=== PATIENT | male | born 2000 | race Caucasian/White ===

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

== ENCOUNTER 2018-12-02 11:36 | Emergency (ER) | payer BC ==
--- NOTE | 2018-12-02 11:51 | EDM.PDOC ---
ED HPI GENERAL MEDICAL PROBLEM - General Chief Complaint: Upper Extremity Injury/Pain Stated Complaint: LEFT WRIST Time Seen by Provider: 12/02/18 11:38 Source of Information: Reports: Patient History Limitations: Reports: No Limitations - History of Present Illness INITIAL COMMENTS - FREE TEXT/NARRATIVE: HISTORY AND PHYSICAL: History of present illness: Patient is a 18-year-old male presents to the ED today with concern of left wrist injury that occurred yesterday. Patient states he was riding his skateboard and hit a crack and fell off and landed on his left wrist which was outstretched. Patient states he did not hit his head or lose consciousness. Patient states he has been able to use the wrist but does have some pain with doing so. Patient denies any prior injury to the wrist or any other symptoms or concerns. Patient denies fever, chills, chest pain, shortness of breath, or cough. Denies headache, neck stiff ness, change in vision, syncope, or near syncope. Denies nausea, vomiting, abdominal pain, diarrhea, constipation, or dysuria. Has not noted any blood in urine or stool. Patient has been eating and drinking appropriately. Review of systems: As per history of present illness and below otherwise all systems reviewed and negative. Past medical history: As per history of present illness and as reviewed below otherwise noncontributory. Surgical history: As per history of present illness and as reviewed below otherwise noncontributory. Social history: See social history for further information Family history: As per history of present illness and as reviewed below otherwise noncontributory. Physical exam: General: Patient is alert, oriented, and in no acute distress. Patient sitting comfortably on exam table. HEENT: Atraumatic, normocephalic, pupils equal and reactive bilaterally, negative for conjunctival pallor or scleral icterus, mucous membranes moist, TMs normal bilaterally, throat clear, neck supple, nontender, trachea midline. No drooling or trismus noted. No meningeal signs. No hot potato voice noted. Lungs: Clear to auscultation, breath sounds equal bilaterally, chest nontender. Heart: S1S2, regular rate and rhythm without overt murmur Abdomen: Soft, nondistended, nontender. Negative for masses or hepatosplenomegaly. Negative for costovertebral tenderness. Pelvis: Stable nontender. Genitourinary: Deferred. Rectal: Deferred. Skin: Intact, warm, dry. No lesions or rashes noted. Extremities: Atraumatic, negative for cords or calf pain. Neurovascular unremarkable. No obvious deformity of the complete left upper extremity. Patient has full range of motion of the complete left upper extremity without pain or difficulty. Patient does have mild pain with palpation of the generalized wrist. Radial pulses grossly intact with capillary refill less than 2 seconds of the right upper extremity. Negative snuffbox tenderness. Neuro: Awake, alert, oriented. Cranial nerves II through XII unremarkable. Cerebellum unremarkable. Motor and sensory unremarkable throughout. Exam nonfocal. Notes: Discussed the importance for follow-up with a primary care provider. Voices understanding and is agreeable to plan of care. Denies any further questions or concerns at this time. Diagnostics: hand XR, wrist XR Therapeutics: Emmanuel wrap Prescription: None Impression: Left wrist injury Plan: 1. Rest, ice, elevate the affected extremity. You can apply ice 15 minutes on, 15 minutes off. 2. Tylenol and/or Ibuprofen as directed for pain management or discomfort. 3. Follow up with the primary care provider as discussed. Return to the ED as needed and as discussed. Definitive disposition and diagnosis as appropriate pending reevaluation and review of above. Left wrist Pain Score (Numeric/FACES): 4 - Related Data Allergies Allergy/AdvReac Type Severity Reaction Status Date / Time peroxide Allergy Cannot Uncoded 12/02/18 11:45 Remember Home Meds: Home Meds . [No Known Home Meds] 02/06/18 [History] Past Medical History - Past Health History Medical/Surgical History: Denies Medical/Surgical History HEENT History: Reports: None Cardiovascular History: Reports: None Respiratory History: Reports: None Gastrointestinal History: Reports: None Genitourinary History: Reports: None Musculoskeletal History: Reports: None Neurological History: Reports: None Psychiatric History: Reports: None Endocrine/Metabolic History: Reports: None Hematologic History: Reports: None Immunologic History: Reports: None Oncologic (Cancer) History: Reports: None Dermatologic History: Reports: None - Infectious Disease History Infectious Disease History: Reports: None - Past Surgical History Head Surgeries/Procedures: Reports: None HEENT Surgical History: Reports: Tonsillectomy Cardiovascular Surgical History: Reports: None Respiratory Surgical History: Reports: None GI Surgical History: Reports: None Male Surgical History: Reports: None Endocrine Surgical History: Reports: None Neurological Surgical History: Reports: None Musculoskeletal Surgical History: Reports: None Oncologic Surgical History: Reports: None Dermatological Surgical History: Reports: None Social & Family History - Family History Family Medical History: Unobtainable - Tobacco Use Smoking Status *Q: Current Every Day Smoker Years of Tobacco use: 8 Packs/Tins Daily: 1.5 - Caffeine Use Caffeine Use: Reports: Coffee, Energy Drinks, Soda, Tea - Recreational Drug Use Recreational Drug Use: Yes Recreational Drug Type: Reports: Marijuana/Hashish Review of Systems - Review of Systems Review Of Systems: ROS reveals no pertinent complaints other than HPI. ED EXAM, GENERAL - Physical Exam Exam: See Below (See dictation) Course - Vital Signs Last Recorded V/S: Last Vital Signs Temp 96.9 F 12/02/18 11:44 Pulse 88 12/02/18 11:44 Resp 18 12/02/18 11:44 BP 114/57 L 12/02/18 11:44 Pulse Ox 97 12/02/18 11:44 - Orders/Labs/Meds Orders: Active Orders 24 hr Category Date Time Status DME for Discharge [COMM] Stat Oth 12/02/18 12:45 Ordered Departure - Departure Time of Disposition: 12:46 Disposition: Home, Self-Care 01 Clinical Impression: Wrist injury Qualifiers: Encounter type: initial encounter Laterality: left Qualified Code(s): S69.92XA - Unspecified injury of left wrist, hand and finger(s), initial encounter - Discharge Information Referrals: PCP,None [Primary Care Provider] - Forms: ED Department Discharge Additional Instructions: The following information is given to patients seen in the emergency department who are being discharged to home. This information is to outline your options for follow-up care. We provide all patients seen in our emergency department with a follow-up referral. The need for follow-up, as well as the timing and circumstances, are variable depending upon the specifics of your emergency department visit. If you don't have a primary care physician on staff, we will provide you with a referral. We always advise you to contact your personal physician following an emergency department visit to inform them of the circumstance of the visit and for follow-up with them and/or the need for any referrals to a consulting specialist. The emergency department will also refer you to a specialist when appropriate. This referral assures that you have the opportunity for follow-up care with a specialist. All of these measure are taken in an effort to provide you with optimal care, which includes your follow-up. Under all circumstances we always encourage you to contact your private physician who remains a resource for coordinating your care. When calling for follow-up care, please make the office aware that this follow-up is from your recent emergency room visit. If for any reason you are refused follow-up, please contact the [facility] Emergency Department at and asked to speak to the emergency department charge nurse. [facility] Primary [facility] [address] [place] [address] [id number] [facility] [address] [place] [id number] 1. Rest, ice, elevate the affected extremity. You can apply ice 15 minutes on, 15 minutes off. 2. Tylenol and/or Ibuprofen as directed for pain management or discomfort. 3. Follow up with the primary care provider as discussed. Return to the ED as needed and as discussed. - My Orders Last 24 Hours: My Active Orders 12/02/18 12:45 DME for Discharge [COMM] Stat - Assessment/Plan Last 24 Hours: My Active Orders 12/02/18 12:45 DME for Discharge [COMM] Stat
--- NOTE | 2018-12-02 12:35 | CR ---
Left hand: Three views of the left hand were obtained. Comparison: No prior hand study. Joint spaces are maintained. No fracture, dislocation or other bony abnormality is seen. Impression: No abnormality is seen on left hand exam. Diagnostic code #1 MTDD
--- NOTE | 2018-12-02 12:36 | CR ---
Left wrist: Three views of the left wrist were obtained. Comparison: No previous wrist study. Joint spaces are maintained. No fracture, dislocation or other bony abnormality is seen. Impression: No abnormality is identified on left wrist exam. Diagnostic code #1 MTDD
== END 2018-12-02 13:05 | disposition home or self-care (01) ==
LOC: MW.ED 11:36
DX: S69.92XA Unspecified injury of left wrist, hand and finger(s), initial encounter (principal); F17.210 Nicotine dependence, cigarettes, uncomplicated; Z88.8 Allergy status to other drugs, medicaments and biological substances; V00.131A Fall from skateboard, initial encounter; Y93.51 Activity, roller skating (inline) and skateboarding
CPT/HCPCS: 73110-26-LT; 73110-LT; 73130-26-LT; 73130-LT; 99283-25

== ENCOUNTER 2019-09-09 11:39 | Emergency (ER) | payer SELFPAY ==
[2019-09-09] MEDS ORDERED: Ondansetron 4 MG Tab.DIS PO ONE (12:00)
--- NOTE | 2019-09-09 12:02 | EDM.PDOC ---
ED HPI GENERAL MEDICAL PROBLEM - General Chief Complaint: Abdominal Pain Stated Complaint: VOMITTING;SHAKING Time Seen by Provider: 09/09/19 11:46 - History of Present Illness INITIAL COMMENTS - FREE TEXT/NARRATIVE: History of present illness: 18-year-old male presenting with nausea and vomiting since last night. He reports that he consumed a large amount of alcohol yesterday and woke up vomiting last night, went back to sleep and woke up again this morning vomiting and he is concerned he is dehydrated. He has been attempting to drink Pedialyte but has not been able to keep it down. No abdominal pain. No other symptoms. Review of systems: As per history of present illness and below otherwise all systems reviewed and negative. Past medical history: As per history of present illness and as reviewed below otherwise noncontributory. Surgical history: As per history of present illness and as reviewed below otherwise noncontributory. Tonsillectomy Social history: No reported history of drug. Occasional alcohol abuse Family history: As per history of present illness and as reviewed below otherwise noncontributory. Physical exam: GEN: no acute distress, well appearing HEENT: Atraumatic, normocephalic, mucous membranes dry Neck: supple, nontender, trachea midline. Lungs: No respiratory distress. Heart: RRR Abdomen: Soft, nondistended, nontender. Back: nontender Extremities: Atraumatic. Neurovascularly intact. Neuro: Awake, alert, oriented. Neuro Exam nonfocal. Skin: warm, dry, no lesions Diagnostics: Deferred at this time, patient declines IV or labs Therapeutics: ODT Zofran MDM: Impression: [] Plan: [] Definitive disposition and diagnosis as appropriate pending reevaluation and review of above. Right Ankle Pain Score (Numeric/FACES): 3 - Related Data Allergies Allergy/AdvReac Type Severity Reaction Status Date / Time peroxide Allergy Cannot Uncoded 09/09/19 11:54 Remember Home Meds: Home Meds Ondansetron [Zofran ODT] 4 mg PO Q6H PRN #5 tab.dis 09/09/19 [Rx] Past Medical History - Past Health History Medical/Surgical History: Denies Medical/Surgical History HEENT History: Reports: None Cardiovascular History: Reports: None Respiratory History: Reports: None Gastrointestinal History: Reports: None Genitourinary History: Reports: None Musculoskeletal History: Reports: None Neurological History: Reports: None Psychiatric History: Reports: None Endocrine/Metabolic History: Reports: None Hematologic History: Reports: None Immunologic History: Reports: None Oncologic (Cancer) History: Reports: None Dermatologic History: Reports: None - Infectious Disease History Infectious Disease History: Reports: None - Past Surgical History Head Surgeries/Procedures: Reports: None HEENT Surgical History: Reports: Tonsillectomy Cardiovascular Surgical History: Reports: None Respiratory Surgical History: Reports: None GI Surgical History: Reports: None Male Surgical History: Reports: None Endocrine Surgical History: Reports: None Neurological Surgical History: Reports: None Musculoskeletal Surgical History: Reports: None Oncologic Surgical History: Reports: None Dermatological Surgical History: Reports: None Social & Family History - Family History Family Medical History: Unobtainable - Tobacco Use Smoking Status *Q: Former Smoker Used Tobacco, but Quit: Yes Month/Year Tobacco Last Used: 06/2019 - Caffeine Use Caffeine Use: Reports: Coffee, Energy Drinks, Soda, Tea - Recreational Drug Use Recreational Drug Use: Yes Recreational Drug Type: Reports: Marijuana/Hashish ED ROS GENERAL - Review of Systems Review Of Systems: See Below (See HPI) ED EXAM, GI/ABD - Physical Exam Exam: See Below (See HPI) Course - Vital Signs Text/Narrative:: Nausea and vomiting after heavy alcohol use yesterday. Labs are largely unremarkable other than elevated white blood cell count, however the patient has no fever and no other infectious type symptoms and I suspect this is due to the multiple episodes of vomiting he had reported. Last Recorded V/S: Last Vital Signs Temp 96.2 F L 09/09/19 11:51 Pulse 60 09/09/19 14:26 Resp 15 09/09/19 14:26 BP 118/68 09/09/19 14:26 Pulse Ox 98 09/09/19 14:26 - Orders/Labs/Meds Orders: Active Orders 24 hr Category Date Time Status Saline Lock Insert [OM.PC] Stat Oth 09/09/19 13:37 Ordered Labs: Laboratory Tests 09/09/19 09/09/19 Range/Units 13:41 13:41 WBC 13.70 H (4.0-11.0) K/uL RBC 5.67 (4.50-5.90) M/uL Hgb 17.2 H (13.0-17.0) g/dL Hct 49.2 (38.0-50.0) % MCV 86.8 (80.0-98.0) fL MCH 30.3 (27.0-32.0) pg MCHC 35.0 (31.0-37.0) g/dL RDW Std Deviation 39.9 (28.0-62.0) fl RDW Coeff of Angelia 13 (11.0-15.0) % Plt Count 232 (150-400) K/uL MPV 10.50 (7.40-12.00) fL Neut % (Auto) 88.1 H (48.0-80.0) % Lymph % (Auto) 6.5 L (16.0-40.0) % [place] % (Auto) 5.3 (0.0-15.0) % Eos % (Auto) 0.0 (0.0-7.0) % Baso % (Auto) 0.1 (0.0-1.5) % Neut # (Auto) 12.1 H (1.4-5.7) K/uL Lymph # (Auto) 0.9 (0.6-2.4) K/uL [place] # (Auto) 0.7 (0.0-0.8) K/uL Eos # (Auto) 0.0 (0.0-0.7) K/uL Baso # (Auto) 0.0 (0.0-0.1) K/uL Nucleated RBC % 0.0 /100WBC Nucleated RBCs # 0 K/uL Sodium 141 (136-148) mmol/L Potassium 4.0 (3.5-5.1) mmol/L Chloride 103 (98-107) mmol/L Carbon Dioxide 24.8 (21.0-32.0) mmol/L BUN 16 (7.0-18.0) mg/dL Creatinine 1.0 (0.8-1.3) mg/dL Est Cr Clr Drug Dosing 139.86 mL/min Estimated GFR (MDRD) > 60.0 ml/min Glucose 100 (74-106) mg/dL Calcium 10.1 (8.5-10.1) mg/dL Meds: Medications Discontinued Medications Generic Name Dose Route Start Last Admin Trade Name Freq PRN Reason Stop Dose Admin Sodium Chloride 1,000 mls @ 999 mls/hr 09/09/19 13:37 09/09/19 13:40 Normal Saline IV 09/09/19 14:37 999 mls/hr .Bolus ONE Administration Ondansetron HCl 4 mg 09/09/19 12:00 09/09/19 12:10 Zofran Odt PO 09/09/19 12:01 4 mg ONETIME ONE Administration Ondansetron HCl 4 mg 09/09/19 13:37 09/09/19 13:40 Zofran IVPUSH 09/09/19 13:38 4 mg ONETIME ONE Administration Sodium Chloride 10 ml 09/09/19 13:37 09/09/19 13:49 Saline Flush FLUSH 10 ml ASDIRECTED PRN Administration Keep Vein Open Sodium Chloride 2.5 ml 09/09/19 13:37 09/09/19 13:49 Saline Flush FLUSH 2.5 ml ASDIRECTED PRN Administration Keep Vein Open - Re-Assessments/Exams Free Text/Narrative Re-Assessment/Exam: 09/09/19 13:37 On reassessment, the patient reports that he is not feeling any better and actually did vomit again. After discussion, he does agree to IV fluids as well as Zofran for rehydration and basic labs. 09/09/19 14:25 Patient feeling much better now. Labs unremarkable except for mild white count elevation without any infectious signs or symptoms and with nausea and vomiting from a clear source. No further nausea and vomiting. Stable for discharge. Departure - Departure Time of Disposition: 14:25 Disposition: Home, Self-Care 01 Clinical Impression: Vomiting, Alcohol abuse - Discharge Information Prescriptions: Ondansetron [Zofran ODT] 4 mg PO Q6H PRN #5 tab.dis PRN Reason: Vomiting Instructions: Alcohol Use Disorder, Nausea and Vomiting, Adult, [id number] Referrals: PCP,None [Primary Care Provider] - Forms: ED Department Discharge Additional Instructions: Please drink plenty of fluids over the next few days. Avoid drinking any alcohol. Rest. Avoid consuming alcohol in excess amounts. If you start to vomit again you may take 1 of the Zofran tablets. Return to the emergency department if you have any worsening symptoms or if you cannot control the vomiting with the Zofran. The following information is given to patients seen in the emergency department who are being discharged to home. This information is to outline your options for follow-up care. We provide all patients seen in our emergency department with a follow-up referral. The need for follow-up, as well as the timing and circumstances, are variable depending upon the specifics of your emergency department visit. If you don't have a primary care physician on staff, we will provide you with a referral. We always advise you to contact your personal physician following an emergency department visit to inform them of the circumstance of the visit and for follow-up with them and/or the need for any referrals to a consulting specialist. The emergency department will also refer you to a specialist when appropriate. This referral assures that you have the opportunity for follow-up care with a specialist. All of these measure are taken in an effort to provide you with optimal care, which includes your follow-up. Under all circumstances we always encourage you to contact your private physician who remains a resource for coordinating your care. When calling for follow-up care, please make the office aware that this follow-up is from your recent emergency room visit. If for any reason you are refused follow-up, please contact the [facility] Emergency Department at and asked to speak to the emergency department charge nurse. [facility] [address] [place] [address] [facility] [address] [place] [id number] Sepsis Event Note (ED) - Evaluation Sepsis Screening Result: No Definite Risk - Focused Exam Vital Signs: Vital Signs Temp Pulse Resp BP Pulse Ox 09/09/19 14:26 60 15 118/68 98 09/09/19 14:12 80 16 121/66 98 09/09/19 11:51 96.2 F L 68 20 122/63 97 - My Orders Last 24 Hours: My Active Orders 09/09/19 13:37 Saline Lock Insert [OM.PC] Stat - Assessment/Plan Last 24 Hours: My Active Orders 09/09/19 13:37 Saline Lock Insert [OM.PC] Stat
[2019-09-09] MEDS ORDERED: Sodium Chloride 0.9% 2.5 ML Syringe FLUSH PRN (13:37)
[2019-09-09] MEDS ORDERED: Sodium Chloride 0.9% 10 ML Syringe FLUSH PRN (13:37)
[2019-09-09] MEDS ORDERED: Ondansetron 4 MG/2 ML SDV IVPUSH ONE (13:37)
[2019-09-09] MEDS ORDERED: Sodium Chloride 0.9% 1,000 ML IV ONE (13:37)
[2019-09-09 14:05] LABS: BLOOD UREA NITROGEN,BUN 16 mg/dL (7.0-18.0); CARBON DIOXIDE,CO2 24.8 mmol/L (21.0-32.0); CHLORIDE,CL 103 mmol/L (98-107); GLUCOSE RANDOM 100 mg/dL (74-106); SODIUM,NA 141 mmol/L (136-148)
== END 2019-09-09 14:36 | disposition home or self-care (01) ==
LOC: MW.ED 11:39
DX: F10.10 Alcohol abuse, uncomplicated (principal); R11.2 Nausea with vomiting, unspecified; Z87.891 Personal history of nicotine dependence; Z88.8 Allergy status to other drugs, medicaments and biological substances
CPT/HCPCS: 80048; 85025; 96361; 96374; 99283; 99284-25; A9270-GY; J2405; J7030

== ENCOUNTER 2020-04-24 12:14 | Emergency (ER) | payer OTHER ==
--- NOTE | 2020-04-24 12:32 | EDM.PDOC ---
ED HPI GENERAL MEDICAL PROBLEM - General Chief Complaint: Head Injury Stated Complaint: HIT ON TOP OF HEAD WITH DOOR Time Seen by Provider: 04/24/20 12:15 Source of Information: Reports: Patient History Limitations: Reports: No Limitations - History of Present Illness INITIAL COMMENTS - FREE TEXT/NARRATIVE: HISTORY AND PHYSICAL: History of present illness: Patient is a 19-year-old male who presents to the emergency room with complaints of a 1 cm laceration to the top of his scalp. He was lifting up a door above his head when it fell hitting him in the head. He has no loss of consciousness. He denies any neck or back pain. He denies any extremity involvement. States he is here in the emergency room as he was requested to do so by his employer. His tetanus is up-to-date. He offers no systemic complaints. Review of systems: As per history of present illness and below otherwise all systems reviewed and negative. Past medical history: As per history of present illness and as reviewed below otherwise noncontributory. Surgical history: As per history of present illness and as reviewed below otherwise noncontributory. Social history: See social history for further information Family history: As per history of present illness and as reviewed below otherwise noncontributory. Physical exam: General: Well developed and well nourished. Alert and orientated x 3. Nontoxic in appearance and in no acute distress. Vital signs are stable and have been reviewed by me. Nursing notes were reviewed. HEENT: 1 cm superficial laceration to the top of his scalp, nontender, normocephalic, pupils equal and reactive bilaterally, negative for conjunctival pallor or scleral icterus, mucous membranes moist, TMs normal bilaterally, throat clear, teeth/oral mucosa intact, neck supple, nontender, trachea midline. No drooling or trismus noted. No meningeal signs. No hot potato voice noted. Lungs: Clear to auscultation bilaterally. No wheezes, rales, or rhonchi. Chest nontender. Normal work of breathing, no accessory muscles used. Heart: S1S2, regular rate and rhythm without overt murmur, gallops, or rubs. No JVD. No peripheral edema Abdomen: Soft, nondistended, nontender. Normoactive bowel sounds. Negative for masses or costovertebral tenderness. C-spine/Back: No pinpoint vertebral tenderness upon palpation. No crepitus, step-offs or obvious deformities. Patient is ambulatory into the emergency room without difficulty or deficit. Able to rock back on heels and walk on toes. Denies any urinary or fecal incontinence. Denies any numbness, tingling or s addle paresthesia. No concerns of serious infection, fracture or cord compression, or cauda equina syndrome. Deep tendon reflexes brisk bilaterally. Skin: Intact, warm, dry. No lesions or rashes noted. Hematologic: No petechiae or purpra. Mucosa appropriate color and normal nail bed color and refill. Extremities: Moves all extremities per self without difficulty or deficits, negative for cords or calf pain. Neurovascular unremarkable. Neuro: Awake, alert, oriented. Cranial nerves II through XII unremarkable. Cerebellum unremarkable. Motor and sensory unremarkable throughout. Exam nonfocal. Psychiatric: Mood and affect are appropriate. Normal thought process. Answering questions appropriately. Notes: *This patient was seen and evaluated during the 2019 SARS-CoV-2 novel coronavirus pandemic period. Community viral transmission is ongoing at time of this encounter and the emergency department is operating under pandemic response procedures. The scalp laceration was cleansed. It is superficial and is not need to be repaired. He declines the need for head CT which I agree he has not had any loss of consciousness and has been acting appropriately. I have talked with the patient about today's findings, in addition to providing specific details for plan of care. Reassessment at the time of disposition demonstrates that the patient is in no acute distress. The patient is stable for discharge, counseling was provided and we discussed in great detail signs and symptoms that would prompt them to return to the Emergency Department. Medication, follow up and supportive care measures were reviewed and discussed. Voices understanding and is agreeable to plan of care. Denies any further questions or concerns at this time. Diagnostics: None Therapeutics: None Prescription: None Impression: Head Injury Plan: 1. Please review and follow the head injury instructions that we discussed and are printed in your discharge packet. 2. Limit any physical activities and follow cognitive rest (decrease screen time, reading, tv, etc..) over the next 24 hours pending resolution of symptoms. 3. Tylenol and/or ibuprofen as needed for pain management. 4. Follow-up with your primary care provider as we discussed. Return to the ED as needed and as discussed. Definitive disposition and diagnosis as appropriate pending reevaluation and review of above. - Related Data Allergies Allergy/AdvReac Type Severity Reaction Status Date / Time peroxide Allergy Cannot Uncoded 09/09/19 11:54 Remember Home Meds: Home Meds Ondansetron [Zofran ODT] 4 mg PO Q6H PRN #5 tab.dis 09/09/19 [Rx] Past Medical History - Past Health History Medical/Surgical History: Denies Medical/Surgical History HEENT History: Reports: None Cardiovascular History: Reports: None Respiratory History: Reports: None Gastrointestinal History: Reports: None Genitourinary History: Reports: None Musculoskeletal History: Reports: None Neurological History: Reports: None Psychiatric History: Reports: None Endocrine/Metabolic History: Reports: None Hematologic History: Reports: None Immunologic History: Reports: None Oncologic (Cancer) History: Reports: None Dermatologic History: Reports: None - Infectious Disease History Infectious Disease History: Reports: None - Past Surgical History Head Surgeries/Procedures: Reports: None HEENT Surgical History: Reports: Tonsillectomy Cardiovascular Surgical History: Reports: None Respiratory Surgical History: Reports: None GI Surgical History: Reports: None Male Surgical History: Reports: None Endocrine Surgical History: Reports: None Neurological Surgical History: Reports: None Musculoskeletal Surgical History: Reports: None Oncologic Surgical History: Reports: None Dermatological Surgical History: Reports: None Social & Family History - Family History Family Medical History: Unobtainable - Caffeine Use Caffeine Use: Reports: Coffee, Energy Drinks, Soda, Tea ED ROS GENERAL - Review of Systems Review Of Systems: Comprehensive ROS is negative, except as noted in HPI. ED EXAM, HEAD INJURY - Physical Exam Exam: See Below (See dictation) Departure - Departure Time of Disposition: 12:35 Disposition: Home, Self-Care 01 Clinical Impression: Head injury Qualifiers: Encounter type: initial encounter Qualified Code(s): S09.90XA - Unspecified injury of head, initial encounter - Discharge Information Instructions: Head Injury, Adult, [id number] Referrals: PCP,None [Primary Care Provider] - Forms: ED Department Discharge Additional Instructions: The following information is given to patients seen in the emergency department who are being discharged to home. This information is to outline your options for follow-up care. We provide all patients seen in our emergency department with a follow-up referral. The need for follow-up, as well as the timing and circumstances, are variable depending upon the specifics of your emergency department visit. If you don't have a primary care physician on staff, we will provide you with a referral. We always advise you to contact your personal physician following an emergency department visit to inform them of the circumstance of the visit and for follow-up with them and/or the need for any referrals to a consulting specialist. The emergency department will also refer you to a specialist when appropriate. This referral assures that you have the opportunity for follow-up care with a specialist. All of these measure are taken in an effort to provide you with optimal care, which includes your follow-up. Under all circumstances we always encourage you to contact your private physician who remains a resource for coordinating your care. When calling for follow-up care, please make the office aware that this follow-up is from your recent emergency room visit. If for any reason you are refused follow-up, please contact the [facility] Emergency Department at and asked to speak to the emergency department charge nurse. [facility] [address] [place] [id number] [place] [address] Thank you for choosing the [facility] emergency department in [place] for your medical needs today. It was a pleasure caring for you. Today you were seen in the emergency department for head injury/laceration. 1. Please review and follow the head injury instructions that we discussed and are printed in your discharge packet. 2. Limit any physical activities and follow cognitive rest (decrease screen time , reading, tv, etc..) over the next 24 hours pending resolution of symptoms. 3. Tylenol and/or ibuprofen as needed for pain management. 4. Follow-up with your primary care provider as we discussed. Return to the ED as needed and as discussed.
== END 2020-04-24 12:46 | disposition home or self-care (01) ==
LOC: MW.ED 12:14
DX: S01.01XA Laceration without foreign body of scalp, initial encounter (principal); Z91.048 Other nonmedicinal substance allergy status; W22.8XXA Striking against or struck by other objects, initial encounter
CPT/HCPCS: 99282

== ENCOUNTER 2020-05-06 11:56 | Emergency (ER) | payer SELFPAY ==
--- NOTE | 2020-05-06 12:03 | EDM.PDOC ---
ED HPI GENERAL MEDICAL PROBLEM - General Stated Complaint: DIZZY Time Seen by Provider: 05/06/20 11:56 Source of Information: Reports: Patient History Limitations: Reports: No Limitations - History of Present Illness INITIAL COMMENTS - FREE TEXT/NARRATIVE: HISTORY AND PHYSICAL: History of present illness: Patient is a 19-year-old male who presents to the emergency room with complaints of nausea, vomiting, generalized abdominal pain, dizziness that has been intermittently going on over the past 4 years. Today he woke up and had mild generalized abdominal pain associated with nausea and vomiting after trying to keep 2 bottles of water down. He states he was at work and had an episode of dizziness that lasted a few seconds. He states he felt like his vision was blurred for approximately 15 seconds. This resolved on its own. He states nothing makes the dizziness better or worse it "just comes and goes". He states his employer made him leave work and come to the emergency room for evaluation. He denies any head injury, trauma or falls. Denies any alcohol or drug abuse. Patient denies any fever, chills, headache, syncope or near syncope. Denies any chest pain, back pain, shortness of breath or cough. Denies any diarrhea, constipation or dysuria. Has not noted any blood in urine or stool. Denies any testicular pain, redness, swelling or penile discharge. Patient had previously been eating and drinking appropriately. No recent travel. No rash or skin changes. Review of systems: As per history of present illness and below otherwise all systems reviewed and negative. Past medical history: As per history of present illness and as reviewed below otherwise noncontributory. Surgical history: As per history of present illness and as reviewed below otherwise noncontribu tory. Social history: See social history for further information Family history: As per history of present illness and as reviewed below otherwise noncontributory. Physical exam: General: Well developed and well nourished 19 year old male. Alert and orientated x 3. Nontoxic in appearance and in no acute distress. Vital signs are stable and have been reviewed by me. Nursing notes were reviewed. HEENT: Atraumatic, normocephalic, pupils equal and reactive bilaterally, negative for conjunctival pallor or scleral icterus, no nystagmus, mucous membranes moist, TMs normal bilaterally, throat clear, neck supple, nontender, trachea midline. No drooling or trismus noted. No meningeal signs. No hot potato voice noted. Lungs: Clear to auscultation bilaterally. No wheezes, rales, or rhonchi. Normal work of breathing, no accessory muscles used. Heart: S1S2, regular rate and rhythm without overt murmur, gallops, or rubs. No JVD. No peripheral edema Abdomen: Soft, nondistended, nontender. Normoactive bowel sounds. Negative for masses or costovertebral tenderness. Skin: Intact, warm, dry. No lesions or rashes noted. Hematologic: No petechiae or purpra. Mucosa appropriate color and normal nail bed color and refill. Extremities: Atraumatic, moves all extremities per self without difficulty or deficits, negative for cords or calf pain. Neurovascular unremarkable. Neuro: Awake, alert, oriented. Cranial nerves II through XII unremarkable. Cerebellum unremarkable. Motor and sensory unremarkable throughout. Exam nonfocal. Psychiatric: Mood and affect are appropriate. Normal thought process. Answering questions appropriately. Notes: *This patient was seen and evaluated during the 2019 SARS-CoV-2 novel coronavirus pandemic period. Community viral transmission is ongoing at time of this encounter and the emergency department is operating under pandemic response procedures. Patient states this has been ongoing/intermittent for the past 4 years and has never been evaluated for this in the past. He is vague with how symptoms start, what makes/resolves symptoms, etc... He denies any drug abuse and states he does drink alcohol every other weekend. No recent alcohol ingestion. We did discuss diagnostics and he would like a full work-up at this time. Stats he has never had any imagining for his dizziness. Denies getting any associated headaches with this. Dizzy episodes last usually seconds to maybe a minute. His vital signs are stable and he appears in no acute distress. Currently he is not dizzy and has no change in vision. EKG shows normal sinus rhythm with rate of 79, no concerning findings. Lab work is unremarkable. Patient declines to give urine sample. CT head is WNL. Vital signs remain stable and patient feels improved. He has been drinking water and denies sensation of nausea. I have talked with the patient about today's findings, in addition to providing specific details for plan of care. Reassessment at the time of disposition demonstrates that the patient is in no acute distress. The patient is stable for discharge, counseling was provided and we discussed in great detail signs and symptoms that would prompt them to return to the Emergency Department. Medication, follow up and supportive care measures were reviewed and discussed. Voices understanding and is agreeable to plan of care. Denies any further questions or concerns at this time. Diagnostics: CBC, CMP, UA, lipase, EKG, head CT Therapeutics: IV fluid, Zofran, Toradol Prescription: Zofran Impression: Viral illness Plan: 1. You were evaluated today on an emergent basis. Your lab work, EKG, and head CT are within normal limits. Get good rest. Drink fluids. 2. You can alternate Tylenol and ibuprofen as needed for pain and fever management. 3. We encourage you to follow up with your primary care provider and/or recommended specialist in the next few days for re-evaluation and further care/management. 4. If your symptoms should worsen, new symptoms develop or any of the signs and symptoms we discussed should arise please return to the emergency room or call 911 (if needed). Definitive disposition and diagnosis as appropriate pending reevaluation and review of above. Onset: Today Duration: Chronic (Acute on chronic) - Related Data Allergies Allergy/AdvReac Type Severity Reaction Status Date / Time peroxide Allergy skin Uncoded 05/06/20 12:04 irritation Home Meds: Home Meds Ondansetron [Zofran ODT] 4 mg PO Q6H PRN #8 tab.dis 05/06/20 [Rx] Past Medical History - Past Health History Medical/Surgical History: Denies Medical/Surgical History HEENT History: Reports: None Cardiovascular History: Reports: None Respiratory History: Reports: None Gastrointestinal History: Reports: None Genitourinary History: Reports: None Musculoskeletal History: Reports: None Neurological History: Reports: None Psychiatric History: Reports: None Endocrine/Metabolic History: Reports: None Hematologic History: Reports: None Immunologic History: Reports: None Oncologic (Cancer) History: Reports: None Dermatologic History: Reports: None - Infectious Disease History Infectious Disease History: Reports: None - Past Surgical History Head Surgeries/Procedures: Reports: None HEENT Surgical History: Reports: Tonsillectomy Cardiovascular Surgical History: Reports: None Respiratory Surgical History: Reports: None GI Surgical History: Reports: None Male Surgical History: Reports: None Endocrine Surgical History: Reports: None Neurological Surgical History: Reports: None Musculoskeletal Surgical History: Reports: None Oncologic Surgical History: Reports: None Dermatological Surgical History: Reports: None Social & Family History - Family History Family Medical History: No Pertinent Family History - Caffeine Use Caffeine Use: Reports: Coffee, Energy Drinks, Soda ED ROS GENERAL - Review of Systems Review Of Systems: Comprehensive ROS is negative, except as noted in HPI. ED EXAM, GENERAL - Physical Exam Exam: See Below (See dictation) Course - Vital Signs Last Recorded V/S: Last Vital Signs Temp 97.9 F 05/06/20 12:04 Pulse 71 05/06/20 13:04 Resp 18 05/06/20 12:04 BP 121/72 05/06/20 13:04 Pulse Ox 97 05/06/20 13:04 - Orders/Labs/Meds Orders: Active Orders 24 hr Category Date Time Status EKG Documentation Completion [RC] STAT Care 05/06/20 12:08 Active Head wo Cont [CT] Stat Exams 05/06/20 12:07 Taken UA RFX LUCIANO AND CULT IF INDIC [URIN] Stat Lab 05/06/20 12:07 Ordered Sodium Chloride 0.9% [Saline Flush] Med 05/06/20 12:07 Active 10 ml FLUSH ASDIRECTED PRN Sodium Chloride 0.9% [Saline Flush] Med 05/06/20 12:07 Active 2.5 ml FLUSH ASDIRECTED PRN Saline Lock Insert [OM.PC] Stat Oth 05/06/20 12:07 Ordered Medication Orders Sodium Chloride (Sodium Chloride 0.9% 10 Ml Syringe) 10 ml FLUSH ASDIRECTED PRN PRN Reason: Keep Vein Open Last Admin: 05/06/20 12:13 Dose: 10 ml Documented by: [id number] Sodium Chloride (Sodium Chloride 0.9% 2.5 Ml Syringe) 2.5 ml FLUSH ASDIRECTED PRN PRN Reason: Keep Vein Open Last Admin: 05/06/20 12:13 Dose: 2.5 ml Documented by: [id number] Labs: Laboratory Tests 05/06/20 05/06/20 Range/Units 12:21 12:21 WBC 6.71 (4.0-11.0) K/uL RBC 5.68 (4.50-5.90) M/uL Hgb 17.2 H (13.0-17.0) g/dL Hct 49.9 (38.0-50.0) % MCV 87.9 (80.0-98.0) fL MCH 30.3 (27.0-32.0) pg MCHC 34.5 (31.0-37.0) g/dL RDW Std Deviation 41.2 (28.0-62.0) fl RDW Coeff of Angelia 13 (11.0-15.0) % Plt Count 183 (150-400) K/uL MPV 10.80 (7.40-12.00) fL Neut % (Auto) 78.5 (48.0-80.0) % Lymph % (Auto) 11.6 L (16.0-40.0) % Hayes % (Auto) 9.4 (0.0-15.0) % Eos % (Auto) 0.4 (0.0-7.0) % Baso % (Auto) 0.1 (0.0-1.5) % Neut # (Auto) 5.3 (1.4-5.7) K/uL Lymph # (Auto) 0.8 (0.6-2.4) K/uL Hayes # (Auto) 0.6 (0.0-0.8) K/uL Eos # (Auto) 0.0 (0.0-0.7) K/uL Baso # (Auto) 0.0 (0.0-0.1) K/uL Nucleated RBC % 0.0 /100WBC Nucleated RBCs # 0 K/uL Sodium 139 (136-148) mmol/L Potassium 3.9 (3.5-5.1) mmol/L Chloride 103 (98-107) mmol/L Carbon Dioxide 25.6 (21.0-32.0) mmol/L BUN 16 (7.0-18.0) mg/dL Creatinine 1.2 (0.8-1.3) mg/dL Est Cr Clr Drug Dosing 106.88 mL/min Estimated GFR (MDRD) > 60.0 ml/min Glucose 106 (74-106) mg/dL Calcium 9.4 (8.5-10.1) mg/dL Total Bilirubin 2.1 H (0.2-1.0) mg/dL AST 18 (15-37) IU/L ALT 42 (14-63) IU/L Alkaline Phosphatase 89 (46-116) U/L Total Protein 7.7 (6.4-8.2) g/dL Albumin 4.3 (3.4-5.0) g/dL Globulin 3.4 (2.6-4.0) g/dL Albumin/Globulin Ratio 1.3 (0.9-1.6) Lipase 95 (73-393) U/L Meds: Medications Generic Name Dose Route Start Last Admin Trade Name Freq PRN Reason Stop Dose Admin Sodium Chloride 10 ml 05/06/20 12:07 05/06/20 12:13 Sodium Chloride 0.9% 10 Ml Syringe FLUSH 10 ml ASDIRECTED PRN Administration Keep Vein Open Sodium Chloride 2.5 ml 05/06/20 12:07 05/06/20 12:13 Sodium Chloride 0.9% 2.5 Ml Syringe FLUSH 2.5 ml ASDIRECTED PRN Administration Keep Vein Open Discontinued Medications Generic Name Dose Route Start Last Admin Trade Name Freq PRN Reason Stop Dose Admin Sodium Chloride 1,000 mls @ 999 mls/hr 05/06/20 12:07 05/06/20 12:13 Normal Saline IV 05/06/20 13:07 999 mls/hr STAT ONE Administration Ketorolac Tromethamine 30 mg 05/06/20 12:08 05/06/20 12:13 Ketorolac 30 Mg/Ml Sdv IVPUSH 05/06/20 12:09 30 mg ONETIME ONE Administration Ondansetron HCl 4 mg 05/06/20 12:07 05/06/20 12:13 Ondansetron 4 Mg/2 Ml Sdv IVPUSH 05/06/20 12:08 4 mg ONETIME ONE Administration Departure - Departure Time of Disposition: 13:18 Disposition: Home, Self-Care 01 Clinical Impression: Viral illness - Discharge Information Prescriptions: Ondansetron [Zofran ODT] 4 mg PO Q6H PRN #8 tab.dis PRN Reason: Nausea Instructions: Viral Illness, Adult Referrals: PCP,None [Primary Care Provider] - Additional Instructions: The following information is given to patients seen in the emergency department who are being discharged to home. This information is to outline your options for follow-up care. We provide all patients seen in our emergency department with a follow-up referral. The need for follow-up, as well as the timing and circumstances, are variable depending upon the specifics of your emergency department visit. If you don't have a primary care physician on staff, we will provide you with a referral. We always advise you to contact your personal physician following an emergency department visit to inform them of the circumstance of the visit and for follow-up with them and/or the need for any referrals to a consulting specialist. The emergency department will also refer you to a specialist when appropriate. This referral assures that you have the opportunity for follow-up care with a specialist. All of these measure are taken in an effort to provide you with optimal care, which includes your follow-up. Under all circumstances we always encourage you to contact your private ysician who remains a resource for coordinating your care. When calling for follow-up care, please make the office aware that this follow-up is from your recent emergency room visit. If for any reason you are refused follow-up, please contact the [facility] Emergency Department at and asked to speak to the emergency department charge nurse. [facility] Primary Care [address] [place] [id number] [place] [address] Thank you for choosing the [facility] emergency department in [place] for your medical needs today. It was a pleasure caring for you. Today you were seen in the emergency department for nausea, vomiting and dizziness. 1. You were evaluated today on an emergent basis. Your lab work, EKG, and head CT are within normal limits. Get good rest. Drink fluids. 2. You can alternate Tylenol and ibuprofen as needed for pain and fever management. 3. We encourage you to follow up with your primary care provider and/or recommended specialist in the next few days for re-evaluation and further care/management. 4. If your symptoms should worsen, new symptoms develop or any of the signs and symptoms we discussed should arise please return to the emergency room or call 911 (if needed). Sepsis Event Note (ED) - Focused Exam Vital Signs: Vital Signs Temp Pulse Resp BP Pulse Ox 05/06/20 13:04 71 121/72 97 05/06/20 12:04 97.9 F 91 18 116/72 97 - My Orders Last 24 Hours: My Active Orders 05/06/20 12:07 Head wo Cont [CT] Stat UA RFX LUCIANO AND CULT IF INDIC [URIN] Stat Sodium Chloride 0.9% [Saline Flush] 10 ml FLUSH ASDIRECTED PRN Sodium Chloride 0.9% [Saline Flush] 2.5 ml FLUSH ASDIRECTED PRN Saline Lock Insert [OM.PC] Stat 05/06/20 12:08 EKG Documentation Completion [RC] STAT - Assessment/Plan Last 24 Hours: My Active Orders 05/06/20 12:07 Head wo Cont [CT] Stat UA RFX LUCIANO AND CULT IF INDIC [URIN] Stat Sodium Chloride 0.9% [Saline Flush] 10 ml FLUSH ASDIRECTED PRN Sodium Chloride 0.9% [Saline Flush] 2.5 ml FLUSH ASDIRECTED PRN Saline Lock Insert [OM.PC] Stat 05/06/20 12:08 EKG Documentation Completion [RC] STAT
[2020-05-06] MEDS ORDERED: Sodium Chloride 0.9% 2.5 ML Syringe FLUSH PRN (12:07)
[2020-05-06] MEDS ORDERED: Ondansetron 4 MG/2 ML SDV IVPUSH ONE (12:07)
[2020-05-06] MEDS ORDERED: Sodium Chloride 0.9% 1,000 ML IV ONE (12:07)
[2020-05-06] MEDS ORDERED: Sodium Chloride 0.9% 10 ML Syringe FLUSH PRN (12:07)
[2020-05-06] MEDS ORDERED: Ketorolac 30 MG/ML SDV IVPUSH ONE (12:08)
[2020-05-06 13:00] LABS: BLOOD UREA NITROGEN,BUN 16 mg/dL (7.0-18.0); CARBON DIOXIDE,CO2 25.6 mmol/L (21.0-32.0); CHLORIDE,CL 103 mmol/L (98-107); GLUCOSE RANDOM 106 mg/dL (74-106); LIPASE 95 U/L (73-393); POTASSIUM,K 3.9 mmol/L (3.5-5.1); SODIUM,NA 139 mmol/L (136-148)
--- NOTE | 2020-05-06 13:15 | CT ---
INDICATION: Intermittent dizziness COMPARISON: None available. TECHNIQUE: CT examination of the head was performed with 5 mm thick axial and 2 mm thick coronal and sagittal sections without intravenous contrast. Images were obtained from the vertex of the skull through the skull base, and I examined the images with the brain and bone windows. Please note that all CT scans at this facility use dose modulation, iterative reconstruction, and/or weight-based dosing when appropriate to reduce radiation dose to as low as reasonably achievable. FINDINGS: : The brain is normal in appearance for the patient`s age on today`s study, with no sign of mass lesion, mass effect, hemorrhage, or edema. The ventricles and sulci are normal in appearance for the patient`s age. The visualized portions of the orbits are normal in appearance. The visualized portions of the paranasal sinuses and mastoids are clear. The osseous structures are normal in their appearance with no sign of abnormality in the skull base or calvarium. IMPRESSION: Normal noncontrast CT of the head for the patient`s age. Please note that all CT scans at this facility use dose modulation, iterative reconstruction, and/or weight-based dosing when appropriate to reduce radiation dose to as low as reasonably achievable. Dictated by Gianni Morrow MD @ May 06 2020 1:12PM Signed by Dr. Gianni Morrow @ May 06 2020 1:14PM
== END 2020-05-06 13:32 | disposition home or self-care (01) ==
LOC: MW.ED 11:56
DX: B34.9 Viral infection, unspecified (principal); Z88.8 Allergy status to other drugs, medicaments and biological substances
CPT/HCPCS: 36415; 70450; 80053; 83690; 85025; 93005; 96374; 96375; 99284; J1885; J2405; J7030

== ENCOUNTER 2020-07-04 21:54 | Emergency (ER) | payer BC, OTHER ==
[2020-07-04] MEDS ORDERED: Sodium Chloride 0.9% 10 ML Syringe FLUSH PRN (22:09)
[2020-07-04] MEDS ORDERED: Sodium Chloride 0.9% 2.5 ML Syringe FLUSH PRN (22:09)
[2020-07-04] MEDS ORDERED: Ondansetron 4 MG/2 ML SDV IVPUSH ONE (22:10)
[2020-07-04] MEDS ORDERED: Sodium Chloride 0.9% 1,000 ML IV ONE (22:10)
[2020-07-04] MEDS ORDERED: Ketorolac 15 MG/ML SDV IVPUSH SCH (22:15)
[2020-07-04 22:28] LABS: CARBON DIOXIDE,CO2 24.2 mmol/L (21.0-32.0); POTASSIUM,K 3.9 mmol/L (3.5-5.1)
[2020-07-04] MEDS ORDERED: Iopamidol 755 MG/ML 500 ML Multipack Bottle IVPUSH STA (23:13)
--- NOTE | 2020-07-05 00:58 | CT ---
INDICATION: LOWER ABDOMINAL PAIN CT ABDOMEN AND PELVIS WITH CONTRAST TECHNIQUE: Multidetector CT imaging was performed through the abdomen and pelvis following intravenous contrast administration using 100mL Isovue 370. Coronal and sagittal reconstructions were generated. COMPARISON: None. FINDINGS: Included portions of the lower chest show the lung bases to be clear. The liver, spleen, gallbladder, pancreas, adrenals, and kidneys show no significant findings. Bowel loops are of normal caliber and demonstrate no wall thickening. The appendix is normal. No free fluid or free air is identified. The abdominal aorta appears normal in caliber. No abnormally enlarged lymph nodes are seen. The urinary bladder, prostate, and seminal vesicles are within normal limits. Visualized bones show no acute findings. IMPRESSION: No acute abnormality identified. No cause for the patient`s symptoms is evident. MEL JOHN MD [employer] Dictated by: Yao John MD @ 07/05/2020 00:57:42 (Electronically Signed)
--- NOTE | 2020-07-05 01:14 | EDM.PDOC ---
ED HPI GENERAL MEDICAL PROBLEM - General Chief Complaint: Gastrointestinal Problem Stated Complaint: ABOMINAL PAIN, VOMITTING Time Seen by Provider: 07/04/20 22:28 - History of Present Illness INITIAL COMMENTS - FREE TEXT/NARRATIVE: HISTORY AND PHYSICAL: History of present illness: This is a 19-year-old gentleman with no significant past medical history who presents ER today complaining of abdominal pain for approximately 1 year. Patient reports he presents to the ER today to get it evaluated because he went to his doctor couple weeks ago to get it evaluated and was told that he might have appendicitis and was given antibiotics for treatment. Patient reports that the pain has not changed and has not improved after the antibiotics. Patient denies any recent fevers, shakes, chills. Patient reports occasional cough. Patient denies any diarrhea but does have nausea and vomiting. Patient denies any dysuria, frequency, urgency, testicular pain. Patient denies any penile discharge or testicular swelling. Patient denies any URI symptoms but reports occasional cough. Patient denies any chest discomfort. Patient has any pain with ambulation, cough. Patient reports he has been tolerating p.o. solids and liquids well. Patient denies any exacerbating or relieving factors with his pain. Patient reports the pain comes and goes and is intermittent in nature. Review of systems: As per history of present illness and below otherwise all systems reviewed and negative. Past medical history: As per history of present illness and as reviewed below otherwise noncontributory. Surgical history: As per history of present illness and as reviewed below otherwise noncontributory. Social history: No reported history of drug abuse. Family history: As per history of present illness and as reviewed below otherwise noncontributory. Physical exam: This patient was seen and evaluated during the 2019 SARS-CoV-2 novel coronavirus pandemic period. Community viral transmission is ongoing at time of this enc nter and the emergency department is operating under pandemic response procedures. Constitutional: Patient is oriented to person, place, and time. Appears well- developed and well-nourished. No distress. HEENT: Moist mucous membranes Head: Normocephalic and atraumatic Eyes: Right eye exhibits no discharge. Left eye exhibits no discharge. No scleral icterus Neck: Normal range of motion. No tracheal deviation present. Cardiovascular: Normal rate and regular rhythm. Pulmonary: Effort normal, no respiratory distress. Abd: Soft, nondistended, no rebound/guarding, no psoas or obturator signs, no tenderness at Mcberney's point, no Todd's sign. Pt does not present with an exam that would be consistent with an acute surgical abdomen at this time, mild tenderness palpation to his lower abdomen. Musculoskeletal: Normal range of motion Neurologic: Alert and oriented to person, place and time. Skin: [place], warm and dry. Psychiatric: Normal mood and affect. Behavior is normal. Judgment and thought content normal. Nursing note and vital signs have been reviewed Diagnostics: CBC, CMP, lipase all within normal limits. Urinalysis unremarkable. CT of the abdomen pelvis with IV contrast reveals no abnormalities or acute pathology to explain his pain. Therapeutics: Toradol/Zofran given with IV fluids with significant improvement in his pain. Assessment and plan: 19-year-old gentleman who presents ER today secondary to abdominal pain and discomfort for approximately 1 year. Patient reports that there was questionable diagnosis of appendicitis recently and was treated with antibiotics. Patient currently reports that his pain is resolved after the medication was given him. Patient's work-up in the ED has been unremarkable. Patient is clinically hemodynamically stable at this time and the source for his abdominal pain has been identified. Patient does not present with an acute surgical abdomen at this time. Repeat evaluation of his abdomen at approximately 12:30 AM reveals a nontender abdomen. Patient is resting comfortably. Normal active bowel sounds. Patient be discharged home with a prescription for Zofran for his occasional episodes of nausea and vomiting. Patient has been instructed to follow-up with his doctor for referral for GI. Reassessment at the time of disposition demonstrates that the patient is in no acute distress. The patient has remained stable throughout the entire ED visit and is without objective evidence for acute process requiring urgent intervention or hospitalization. The patient is stable for discharge, counseling is provided as documented above, discussed symptomatic treatment and specific conditions for return. I have spoken with the patient/caregiver and discussed todays findings, in addition to providing specific details for the plan of care. Questions are answered and there is agreement with the plan. Definitive disposition and diagnosis as appropriate pending reevaluation and review of above. - Related Data Allergies Allergy/AdvReac Type Severity Reaction Status Date / Time peroxide Allergy skin Uncoded 07/04/20 22:07 irritation Home Meds: Home Meds Ondansetron [Zofran ODT] 4 mg PO Q6H PRN #12 tab.dis 07/05/20 [Rx] Past Medical History - Past Health History Medical/Surgical History: Denies Medical/Surgical History HEENT History: Reports: None Cardiovascular History: Reports: None Respiratory History: Reports: None Gastrointestinal History: Reports: None Genitourinary History: Reports: None Musculoskeletal History: Reports: None Neurological History: Reports: None Psychiatric History: Reports: None Endocrine/Metabolic History: Reports: None Hematologic History: Reports: None Immunologic History: Reports: None Oncologic (Cancer) History: Reports: None Dermatologic History: Reports: None - Infectious Disease History Infectious Disease History: Reports: None - Past Surgical History Head Surgeries/Procedures: Reports: None HEENT Surgical History: Reports: Tonsillectomy Cardiovascular Surgical History: Reports: None Respiratory Surgical History: Reports: None GI Surgical History: Reports: None Male Surgical History: Reports: None Endocrine Surgical History: Reports: None Neurological Surgical History: Reports: None Musculoskeletal Surgical History: Reports: None Oncologic Surgical History: Reports: None Dermatological Surgical History: Reports: None Social & Family History - Family History Family Medical History: No Pertinent Family History - Caffeine Use Caffeine Use: Reports: Coffee - Recreational Drug Use Recreational Drug Use: No ED ROS GENERAL - Review of Systems Review Of Systems: See Below ED EXAM, GENERAL - Physical Exam Exam: See Below Course - Vital Signs Last Recorded V/S: Last Vital Signs Temp 97.3 F 07/04/20 23:23 Pulse 50 L 07/04/20 23:23 Resp 18 07/04/20 23:23 BP 110/64 07/04/20 23:23 Pulse Ox 97 07/04/20 23:23 - Orders/Labs/Meds Orders: Active Orders 24 hr Category Date Time Status Ketorolac [Toradol] Med 07/04/20 22:15 Active 15 mg IVPUSH Q6H Sodium Chloride 0.9% [Saline Flush] Med 07/04/20 22:09 Active 10 ml FLUSH ASDIRECTED PRN Sodium Chloride 0.9% [Saline Flush] Med 07/04/20 22:09 Active 2.5 ml FLUSH ASDIRECTED PRN Saline Lock Insert [OM.PC] Stat Oth 07/04/20 22:09 Ordered Medication Orders Ketorolac Tromethamine (Ketorolac 15 Mg/Ml Sdv) 15 mg IVPUSH Q6H LUCIA Stop: 07/09/20 22:11 Last Admin: 07/04/20 22:24 Dose: 15 mg Documented by: ADRIÁN Sodium Chloride (Sodium Chloride 0.9% 10 Ml Syringe) 10 ml FLUSH ASDIRECTED PRN PRN Reason: Keep Vein Open Sodium Chloride (Sodium Chloride 0.9% 2.5 Ml Syringe) 2.5 ml FLUSH ASDIRECTED PRN PRN Reason: Keep Vein Open Labs: Laboratory Tests 07/04/20 07/04/20 07/04/20 Range/Units 22:04 22:04 22:04 WBC 7.40 (4.0-11.0) K/uL RBC 5.18 (4.50-5.90) M/uL Hgb 16.0 (13.0-17.0) g/dL Hct 45.5 (38.0-50.0) % MCV 87.8 (80.0-98.0) fL MCH 30.9 (27.0-32.0) pg MCHC 35.2 (31.0-37.0) g/dL RDW Std Deviation 41.5 (28.0-62.0) fl RDW Coeff of Angelia 13 (11.0-15.0) % Plt Count 241 (150-400) K/uL MPV 10.50 (7.40-12.00) fL Neut % (Auto) 67.1 (48.0-80.0) % Lymph % (Auto) 23.0 (16.0-40.0) % [place] % (Auto) 7.4 (0.0-15.0) % Eos % (Auto) 1.6 (0.0-7.0) % Baso % (Auto) 0.9 (0.0-1.5) % Neut # (Auto) 5.0 (1.4-5.7) K/uL Lymph # (Auto) 1.7 (0.6-2.4) K/uL [place] # (Auto) 0.6 (0.0-0.8) K/uL Eos # (Auto) 0.1 (0.0-0.7) K/uL Baso # (Auto) 0.1 (0.0-0.1) K/uL Nucleated RBC % 0.0 /100WBC Nucleated RBCs # 0 K/uL Sodium 140 (136-148) mmol/L Potassium 3.9 (3.5-5.1) mmol/L Chloride 102 (98-107) mmol/L Carbon Dioxide 24.2 (21.0-32.0) mmol/L BUN 13 (7.0-18.0) mg/dL Creatinine 1.5 H (0.8-1.3) mg/dL Est Cr Clr Drug Dosing 88.04 mL/min Estimated GFR (MDRD) 59.1 ml/min Glucose 107 H (74-106) mg/dL Calcium 8.6 (8.5-10.1) mg/dL Total Bilirubin 1.4 H (0.2-1.0) mg/dL AST 22 (15-37) IU/L ALT 30 (14-63) IU/L Alkaline Phosphatase 81 (46-116) U/L Total Protein 7.5 (6.4-8.2) g/dL Albumin 4.3 (3.4-5.0) g/dL Globulin 3.2 (2.6-4.0) g/dL Albumin/Globulin Ratio 1.3 (0.9-1.6) Lipase 68 L (73-393) U/L Urine Color YELLOW Urine Appearance CLEAR Urine pH 5.5 (5.0-8.0) Ur Specific [place] >= 1.030 (1.001-1.035) Urine Protein NEGATIVE (NEGATIVE) mg/dL Urine Glucose (UA) NEGATIVE (NEGATIVE) mg/dL Urine Ketones NEGATIVE (NEGATIVE) mg/dL Urine Occult Blood NEGATIVE (NEGATIVE) Urine Nitrite NEGATIVE (NEGATIVE) Urine Bilirubin SMALL H (NEGATIVE) Urine Ictotest NEGATIVE Urine Urobilinogen 1.0 (<2.0) EU/dL Ur Leukocyte Esterase NEGATIVE (NEGATIVE) Meds: Medications Generic Name Dose Route Start Last Admin Trade Name Freq PRN Reason Stop Dose Admin Ketorolac Tromethamine 15 mg 07/04/20 22:15 07/04/20 22:24 Ketorolac 15 Mg/Ml Sdv IVPUSH 07/09/20 22:11 15 mg Q6H LUCIA Administration Sodium Chloride 10 ml 07/04/20 22:09 Sodium Chloride 0.9% 10 Ml Syringe FLUSH ASDIRECTED PRN Keep Vein Open Sodium Chloride 2.5 ml 07/04/20 22:09 Sodium Chloride 0.9% 2.5 Ml Syringe FLUSH ASDIRECTED PRN Keep Vein Open Discontinued Medications Generic Name Dose Route Start Last Admin Trade Name Parul PRN Reason Stop Dose Admin Sodium Chloride 1,000 mls @ 999 mls/hr 07/04/20 22:10 07/04/20 22:24 Normal Saline IV 07/04/20 23:10 999 mls/hr .Bolus ONE Administration Iopamidol 100 ml 07/04/20 23:13 07/04/20 23:13 Iopamidol 755 Mg/Ml 500 Ml Multipack Bottle IVPUSH 07/04/20 23:14 100 ml ONETIME STA Administration Ondansetron HCl 4 mg 07/04/20 22:10 07/04/20 22:24 Ondansetron 4 Mg/2 Ml Sdv IVPUSH 07/04/20 22:11 4 mg ONETIME ONE Administration Departure - Departure Time of Disposition: 01:12 Disposition: Home, Self-Care 01 Condition: Good Clinical Impression: Abdominal pain - Discharge Information Instructions: Abdominal Pain, Adult, [id number] Referrals: PCP,None [Primary Care Provider] - Additional Instructions: You were seen and evaluated in the ER today secondary to abdominal pain for 1 year. The work-up in the emergency department did not reveal any source for y our pain. The CT scan did not reveal any abnormalities in your liver, kidneys, appendix, pancreas, spleen, intestines. All your blood tests are within normal limits. Please follow-up with your family doctor for further evaluation of your abdominal pain and referrals as indicated. You might have irritable bowel syndrome which can sometimes present in this manner. You'll be given a prescription for Zofran to assist you with your nausea. The following information is given to patients seen in the emergency department who are being discharged to home. This information is to outline your options for follow-up care. We provide all patients seen in our emergency department with a follow-up referral. The need for follow-up, as well as the timing and circumstances, are variable depending upon the specifics of your emergency department visit. If you don't have a primary care physician on staff, we will provide you with a referral. We always advise you to contact your personal physician following an emergency department visit to inform them of the circumstance of the visit and for follow-up with them and/or the need for any referrals to a consulting specialist. The emergency department will also refer you to a specialist when appropriate. This referral assures that you have the opportunity for follow-up care with a specialist. All of these measure are taken in an effort to provide you with optimal care, which includes your follow-up. Under all circumstances we always encourage you to contact your private physician who remains a resource for coordinating your care. When calling for follow-up care, please make the office aware that this follow-up is from your recent emergency room visit. If for any reason you are refused follow-up, please contact the [facility] Emergency Department at and asked to speak to the emergency department charge nurse. [facility] [address] [place] [id number] [facility] [address] [place] [id number] Sepsis Event Note (ED) - Evaluation Sepsis Screening Result: No Definite Risk - Focused Exam Vital Signs: Vital Signs Temp Pulse Resp BP Pulse Ox 07/04/20 23:23 97.3 F 50 L 18 110/64 97 07/04/20 22:07 98 F 69 16 130/54 L 95 - My Orders Last 24 Hours: My Active Orders 07/04/20 22:09 Sodium Chloride 0.9% [Saline Flush] 10 ml FLUSH ASDIRECTED PRN Sodium Chloride 0.9% [Saline Flush] 2.5 ml FLUSH ASDIRECTED PRN Saline Lock Insert [OM.PC] Stat 07/04/20 22:15 Ketorolac [Toradol] 15 mg IVPUSH Q6H - Assessment/Plan Last 24 Hours: My Active Orders 07/04/20 22:09 Sodium Chloride 0.9% [Saline Flush] 10 ml FLUSH ASDIRECTED PRN Sodium Chloride 0.9% [Saline Flush] 2.5 ml FLUSH ASDIRECTED PRN Saline Lock Insert [OM.PC] Stat 07/04/20 22:15 Ketorolac [Toradol] 15 mg IVPUSH Q6H
== END 2020-07-05 01:19 | disposition home or self-care (01) ==
LOC: MW.ED 21:54
DX: R10.30 Lower abdominal pain, unspecified (principal); Z88.8 Allergy status to other drugs, medicaments and biological substances
CPT/HCPCS: 36415; 74177; 80053; 81003; 83690; 85025; 96374; 96375; 99284; J1885; J2405; J7030; Q9967

== ENCOUNTER 2021-04-07 19:31 | Emergency (ER) | payer BC ==
[2021-04-07] MEDS ORDERED: Ibuprofen 600 MG Tab PO ONE (20:40)
== END 2021-04-07 20:54 | disposition home or self-care (01) ==
LOC: MW.ED 19:31
DX: S60.032A Contusion of left middle finger without damage to nail, initial encounter (principal); R30.0 Dysuria; Z88.8 Allergy status to other drugs, medicaments and biological substances; W23.0XXA Caught, crushed, jammed, or pinched between moving objects, initial encounter
CPT/HCPCS: 73130; 81003; 99283; A9270

== ENCOUNTER 2021-04-17 15:37 | Emergency (ER) | payer BC ==
[2021-04-17] MEDS: Lidocaine 2% Viscous Solution 15 ML UD PO ONE (16:22)
[2021-04-17] MEDS: Benzocaine 20% Topical Spray UD MUCMEM ONE (16:22)
== END 2021-04-17 16:30 | disposition home or self-care (01) ==
LOC: MW.ED 15:37
DX: S02.5XXA Fracture of tooth (traumatic), initial encounter for closed fracture (principal); K04.7 Periapical abscess without sinus; K00.7 Teething syndrome; Z88.8 Allergy status to other drugs, medicaments and biological substances
CPT/HCPCS: 99282; A9270

== ENCOUNTER 2024-09-04 21:20 | Emergency (ER) | payer BC ==
[2024-09-05] MEDS: Amoxicillin/Clavulanate K 875-125 MG Tab PO ONE (02:35)
== END 2024-09-05 03:55 | disposition home or self-care (01) ==
LOC: MW.ED 21:20
DX: H66.92 Otitis media, unspecified, left ear (principal); F17.210 Nicotine dependence, cigarettes, uncomplicated; Z88.8 Allergy status to other drugs, medicaments and biological substances; Z79.899 Other long term (current) drug therapy
CPT/HCPCS: 99282; A9270